=== PATIENT | female | born 1990 | race Caucasian/White ===

== ENCOUNTER → 2020-07-17 10:38 | Outpatient (CLI) | payer BC, SELFPAY ==
--- NOTE | ~2020-07-17 | US_ITS ---
EXAMINATION: US OB transvaginal EXAM DATE: 07/17/2020 11:01 INDICATION: Uncertain dates, spotting 1st trimester. TECHNIQUE: Pelvic obstetrical transvaginal sonogram was performed by a technologist. [facility] grays[facility] and Doppler images available for interpretation. There are no earlier studies of this gestation for comparison. FINDINGS: Uterus measures 8 x 5 x 6 cm. There is intrauterine gestation sac. pole with heart rate confirmed at 151 beats per minute. The 1.1 cm crown-rump length corresponds to estimated gestat ional age by ultrasound of 7 weeks 2 days, estimated date of confinement 03/03/2021. Yolk sac is anjel ntified. There is no sonographic evidence of subchorionic hemorrhage. Ovaries were not identified . IMPRESSION: Live intrauterine gestation, age by ultrasound 7 weeks 2 days. Reviewed, dictated and finalized at location B. 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
== END ==
PROVIDERS: Visit Provider Nurse Practitioner
DX: O26.851 Spotting complicating pregnancy, first trimester (principal); Z3A.01 Less than 8 weeks gestation of pregnancy
CPT/HCPCS: 76817

== ENCOUNTER → 2020-10-05 09:52 | Outpatient (CLI) | payer BC, SELFPAY ==
--- NOTE | ~2020-10-05 | US_ITS ---
EXAMINATION: US OB >= 14 weeks Fetus DATE: 10/05/2020 10:40 INDICATION: Second trimester anatomic survey TECHNIQUE: Real-time ultrasound of the pelvis was performed. COMPARISON: None. FINDINGS: There is a single living fetus in breech presentation. The placenta is anterior and 4.1 cm from the i nternal cervical os. heart rate is 153 beats per minute (bpm). cardiac activity and feta l movement are noted. The amniotic fluid index is subjectively normal. The heart is inadequately imaged due to positioning. The following anatomy was identified as normal: 3 vessel cord cord insertion kidneys urinary bladder stomach spine diaphragm ventricles cisterna magna cerebellum The following biometric data were obtained: Biparietal diameter (BPD): 4.3 cm; head circumference (HC): 16.3 cm; abdominal circumference (AC): 14 .1 cm; femur length (FL): 2.9 cm. These measurements are concordant. Estimated weight is 280 g +/- 42 g, which correlates with the 75th percentile when 03/03/2021 i s used as estimated date of delivery. As single measurements, these parameters are each equal to the following estimated gestational ages w ith ranges of +/- 2 standard deviations: BPD: 19 weeks 2 days ( 17 weeks 4 days - 21 weeks 0 days). HC: 19 weeks 1 days ( 17 weeks 4 days - 20 weeks 4 days). AC: 19 weeks 4 days ( 17 weeks 3 days - 21 weeks 4 days). FL: 18 weeks 6 days ( 17 weeks 1 days - 20 weeks 5 days). estimated gestational age based solely on measurements from this exam is 19 weeks 2 days +/- 1 weeks 2 days. IMPRESSION: 1. Single living fetus in breech presentation. 2. Estimated weight is 280 g +/- 42 g, which correlates with the 75th percentile when is used as estimated date of delivery. 3. heart and adequately imaged due to positioning. Reviewed, dictated and finalized at location A. IMPRESSION: 1. Single living fetus in breech presentation. 2. Estimated weight is 280 g +/- 42 g, which correlates with the 75th per centile when 03/03/2021 is used as estimated date of delivery. 3. heart and adequately imaged due to positioning.
== END ==
PROVIDERS: Visit Provider Obstetrics & Gynecology Gynecology
DX: Z34.92 Encounter for supervision of normal pregnancy, unspecified, second trimester (principal); Z3A.19 19 weeks gestation of pregnancy
CPT/HCPCS: 76805

== ENCOUNTER → 2020-11-02 10:41 | Outpatient (CLI) | payer BC, SELFPAY ==
--- NOTE | ~2020-11-02 | US_ITS ---
US OB limited 11/02/2020 11:09 Indication: Limited survey follow-up. Procedure: Real-time Limited obstetrical ultrasound Comparison: Ultrasound dated 10/05/2020 Findings: There is a single living intrauterine in breech presentation. heart rate is 139 BPM. Placenta is anterior measuring 3.9 cm to the cervix. Normal four-chamber heart is identifie d. Amniotic fluid is subjectively normal. Impression: 1: Single living intrauterine in breech presentation. 2: Normal four-chamber heart. Reviewed, dictated and finalized at location A. Impression: 1: Single living intrauterine in breech presentation. 2: Normal four-chamber heart.
== END ==
PROVIDERS: Visit Provider Obstetrics & Gynecology Gynecology
DX: Z36.2 Encounter for other antenatal screening follow-up (principal)
CPT/HCPCS: 76815

== ENCOUNTER → 2020-12-11 11:18 | Outpatient (CLI) | payer BC, SELFPAY ==
--- NOTE | ~2020-12-11 | US_ITS ---
EXAMINATION: US OB follow up EXAM DATE: 12/11/2020 11:47 INDICATION: Size greater than dates. Late 2nd trimester. TECHNIQUE: Pelvic obstetrical transabdominal sonogram was performed by a technologist. There are mu ltiple grayscale and Doppler images available for interpretation. Comparison is made to prior examina tion from 11/02/2020. FINDINGS: There is a single fetus identified in breech presentation with a heart rate of 159 beats pe r minute. The placenta is located in the anterior position. There is no sonographic evidence of retr oplacental hemorrhage identified. The amniotic fluid index is 18.7 centimeters, which is normal. BIOMETRIC DATA: Biparietal diameter (BPD): 7.1 cm ----------------> 28 weeks 5 days. Head circumference (HC): 26.9 cm ----------------> 29 weeks 2 days. Abdominal circumference (AC): 24.7 cm ----------> 29 weeks 0 days. Femur length (FL): 5.3 cm --------------------------> 28 weeks 2 days. These measurements are concordant. HC/AC ratio is 1.09 (The 5th -- 95th percentile range is 0.99-1.21. Estimated weight is 1276 g +/- 191 g. This is the 55th percentile when the currently reported clinical gestation age 28 weeks 2 days, clinical estimated date of delivery (GWENDOLYN-OPE) 03/03 is used. estimated gestational age based on measurements from this exam is 28 weeks 6 days, with an trisha mated date of delivery (GWENDOLYN-AUA) 02/27. IMPRESSION: 1. Single fetus in breech presentation with heart rate 159 beats per minute. 2. Estimated weight of 1276 grams, 55th percentile using the currently reported clinical gesta tion age of 28 weeks 2 days, GWENDOLYN(OPE) 03/03. 3. Normal GHAZAL 18.7 cm. Reviewed, dictated and finalized at location A. IMPRESSION: 1. Single fetus in breech presentation with heart rate 159 beats per minute. 2. Estimated weight of 1276 grams, 55th percentile using the currently r eported clinical gestation age of 28 weeks 2 days, GWENDOLYN(OPE) 03/03. 3. Normal GHAZAL 18.7 cm.
== END ==
PROVIDERS: Visit Provider Obstetrics & Gynecology Gynecology
DX: O36.63X0 Maternal care for excessive fetal growth, third trimester, not applicable or unspecified (principal); Z3A.00 Weeks of gestation of pregnancy not specified
CPT/HCPCS: 76816

== ENCOUNTER 2021-02-03 09:01 | Outpatient (CLI) | payer BC, SELFPAY ==
[2021-02-03 09:30] VITALS: BP 121/82; PULSE 93
[2021-02-03 09:45] VITALS: BP 117/77; PULSE 86
[2021-02-03 09:45] LABS: Basophils Percent Auto 0.3 % (0.2-1.2); Eosinophils Absolute Auto 0.1 K/mm3 (0-0.3); Eosinophils Percent Auto 1.4 % (0-4.4); Hematocrit 41.3 % (37.0-47.0); Hemoglobin 13.3 g/dL (12.0-15.0); Immature Granulocyte Absolute 0.03 K/mm3 (0.00-0.031); Immature Granulocyte Percent A 0.3 % (0-0.5); Lymphocytes Absolute Auto 2.14 K/mm3 (0.9-3.2); Lymphocytes Percent Auto 23.1 % (18.3-44.2); Mean Corpuscular HGB Conc 32.2 g/dl (32-36); Mean Corpuscular Hemoglobin 29.9 pg (26-34); Mean Corpuscular Volume 92.8 fl (80-100); Mean Platelet Volume 11.9 fl (7.4-10.4); Monocytes Absolute Auto 0.7 K/mm3 (0.1-0.6); Neutrophils Absolute Auto 6.3 K/mm3 (1.3-6.7); Neutrophils Percent Auto 67.9 % (45.5-73.1); Platelet Count Result 187 k/mm3 (150-375); Red Blood Count 4.45 M/mm3 (4.2-5.4); Red Cell Distribution Width 14.2 % (11.5-14.5); White Blood Count 9.3 K/mm3 (4.5-10.0)
[2021-02-03 09:59] LABS: Add Urine Microscopic? YES; Appearance Urine Cloudy (Clear); Bacteria Urine Trace /hpf; Bilirubin Urine Negative (Negative); Blood Urine 2+ (Negative); Color Urine Yellow (Yellow); Glucose Urine UA Negative (Negative); Ketones Urine Negative (Negative); Leukocyte Esterase Ur 3+ LEU/UL (NEGATIVE); Mucus Urine Rare /lpf; Nitrate Urine Negative (Negative); Protein Urine Negative (Negative); Specific Grav Ur 1.024 (1.001-1.035); Squamous Epithelial Cell Urine Few /hpf (Few); Urobilinogen Urine Negative mg/dL (<2.0)
[2021-02-03 10:00] VITALS: BP 116/76; PULSE 96
[2021-02-03 10:14] LABS: Alanine Aminotransferase 19 U/L (4-35); Albumin Level 3.5 g/dL (3.5-5.1); Alkaline Phosphatase 115 U/L (38-126); Anion Gap 8 mmol/L (8-16); Aspartate Amino Transferase 22 U/L (14-36); Bilirubin,Total 0.8 mg/dL (0.2-1.3); Blood Urea Nitrogen 15 mg/dL (7-17); Carbon Dioxide 21 mmol/L (22-30); Chloride 106 mmol/L (98-107); Estimated Glomerular Filt Rate > 60; Glucose 80 mg/dL (65-110); Potassium 4.1 mmol/L (3.4-5.0); Sodium 135 mmol/L (137-145); Uric Acid 5.5 mg/dL (2.5-7.5)
[2021-02-03 10:15] VITALS: BP 119/82; PULSE 87
[2021-02-03 10:30] VITALS: BP 116/76; PULSE 85
[2021-02-03 11:18] LABS: Creatinine Urine 107.2 mg/dL
[2021-02-03 11:31] LABS: Total Protein Urine Random < 5 mg/dL; Ur Ttl Prot Creatinine Ratio < 0.05 mg/mg (0-0.20)
== END 2021-02-03 11:05 | disposition home or self-care (01) ==
LOC: ANHOBOP 09:11 → ANHOBPP 09:12
PROVIDERS: PCP Internal Medicine; Visit Provider Obstetrics & Gynecology Gynecology
DX: O13.3 Gestational [pregnancy-induced] hypertension without significant proteinuria, third trimester (principal); Z3A.37 37 weeks gestation of pregnancy
CPT/HCPCS: 36415; 59025; 80053; 81001; 82570; 84156; 84550; 85025; 87086; 87088; 99199

== ENCOUNTER 2021-02-04 12:19 | Outpatient (CLI) | payer BC, SELFPAY ==
[2021-02-04 12:58] VITALS: BMI 39.3
[2021-02-04 14:29] LABS: Collection Time Urine 24 HOURS
[2021-02-04 14:30] LABS: Patient Weight 251 Lbs
[2021-02-04 14:31] LABS: Total Volume 24 Hour Urine 2495 ml
[2021-02-04 14:41] LABS: Creatinine Clearance Urine 168.6 ml/min (75-125); Creatinine Urine 74.9 mg/dL; Total Protein Urine 24 Hr 199 mg/24hr (28-141); Total Protein Urine Random 8 mg/dL
== END 2021-02-04 12:20 | disposition home or self-care (01) ==
LOC: ANHOBOP 12:43
PROVIDERS: PCP Internal Medicine; Visit Provider Obstetrics & Gynecology Gynecology
DX: O16.9 Unspecified maternal hypertension, unspecified trimester (principal); Z3A.00 Weeks of gestation of pregnancy not specified
CPT/HCPCS: 81050; 82575; 84156

== ENCOUNTER 2021-02-18 08:45 | Outpatient (RCR) | payer BC, SELFPAY ==
[2021-02-18 09:23] VITALS: BP 115/83; PULSE 88
== END 2021-04-05 09:34 | disposition home or self-care (01) ==
LOC: ANHOBOP 08:45
PROVIDERS: PCP Internal Medicine; Referring Provider Obstetrics & Gynecology Gynecology; Visit Provider Obstetrics & Gynecology Gynecology
DX: O24.419 Gestational diabetes mellitus in pregnancy, unspecified control (principal); Z3A.38 38 weeks gestation of pregnancy
CPT/HCPCS: 59025

== ENCOUNTER 2021-02-21 16:12 | Inpatient (IN) | payer BC, SELFPAY ==
[2021-02-21] VITALS (16 sets, daily range): BP systolic 93–125; BP diastolic 58–84; PULSE 79–109; TEMP 36.8–37.2; BMI 39.3
--- NOTE | 2021-02-21 16:12 | LDADM ---
This patient, Kymberly Woo, was admitted to Labor/Delivery/Recovery 109 on 02/21/21 at 16:12. Plans for labor, pain management and were discussed with patient. Patient/family oriented to hospital policies and general routines including ID bracelet, bed and alarms, visiting hours, pain management, procedures, bathroom and other care routines, personal items, smoking policy, room service/diet and guest tray routines, security routines, and visiting hours. Patient/Family are encouraged to report perceived risks to care and to ask questions if they do not understand what they are told or what they should do. See OBIX for further documentation.
[2021-02-21 16:44] LABS: Glucose Point of Care 87 mg/dl (65-105)
[2021-02-21 16:49] LABS: Basophils Absolute Auto 0.1 K/mm3 (0.0-0.1); Basophils Percent Auto 0.5 % (0.2-1.2); Eosinophils Absolute Auto 0.1 K/mm3 (0-0.3); Eosinophils Percent Auto 0.8 % (0-4.4); Hematocrit 40.5 % (37.0-47.0); Hemoglobin 13.9 g/dL (12.0-15.0); Immature Granulocyte Absolute 0.03 K/mm3 (0.00-0.031); Immature Granulocyte Percent A 0.3 % (0-0.5); Lymphocytes Absolute Auto 2.46 K/mm3 (0.9-3.2); Lymphocytes Percent Auto 24.3 % (18.3-44.2); Mean Corpuscular HGB Conc 34.3 g/dl (32-36); Mean Corpuscular Hemoglobin 31.2 pg (26-34); Mean Corpuscular Volume 90.8 fl (80-100); Mean Platelet Volume 11.7 fl (7.4-10.4); Monocytes Absolute Auto 0.8 K/mm3 (0.1-0.6); Monocytes Percent Auto 7.4 % (2.6-8.5); Neutrophils Absolute Auto 6.7 K/mm3 (1.3-6.7); Neutrophils Percent Auto 66.7 % (45.5-73.1); Platelet Count Result 211 k/mm3 (150-375); Red Blood Count 4.46 M/mm3 (4.2-5.4); Red Cell Distribution Width 14.2 % (11.5-14.5); White Blood Count 10.1 K/mm3 (4.5-10.0)
[2021-02-21 17:10] LABS: Alanine Aminotransferase 23 U/L (4-35); Albumin Level 3.9 g/dL (3.5-5.1); Alkaline Phosphatase 136 U/L (38-126); Anion Gap 9 mmol/L (8-16); Aspartate Amino Transferase 27 U/L (14-36); Blood Urea Nitrogen 16 mg/dL (7-17); Calcium 9.2 mg/dL (8.4-10.2); Carbon Dioxide 20 mmol/L (22-30); Chloride 107 mmol/L (98-107); Estimated CRCL calculation 131 ml/min; Estimated Glomerular Filt Rate > 60; Glucose 96 mg/dL (65-110); Potassium 4.3 mmol/L (3.4-5.0); Sodium 136 mmol/L (137-145)
[2021-02-21 17:15] LABS: Uric Acid 6.4 mg/dL (2.5-7.5)
[2021-02-21] MEDS: DINOPROSTONE 10 MG VAG INSERT VAGINAL (17:19)
[2021-02-21] MEDS: INSULIN HUMAN NPH (*BKC) 100 UNITS/ML 30 UNITS SUB-Q (21:05)
[2021-02-21] MEDS: metFORMIN HCL 500 MG TABLET PO (21:07)
[2021-02-21] MEDS: LABETALOL HCL 100 MG TABLET PO (21:10)
[2021-02-21 21:13] LABS: Glucose Point of Care 145 mg/dl (65-105)
[2021-02-22] VITALS (255 sets, daily range): BP systolic 71–141; BP diastolic 34–103; PULSE 55–136; TEMP 36.3–37.2; O2SAT 82–100
[2021-02-22 05:15] LABS: Glucose Point of Care 77 mg/dl (65-105)
[2021-02-22] MEDS: OXYTOCIN 30 UNITS/NS 500 ML 30 UNITS/500 ML BAG 6 UNITS IV CONT (05:40)
[2021-02-22] MEDS: LACTATED RINGERS 1,000 ML 125 ML IV CONT ×3 (05:40→20:35)
[2021-02-22 07:47] LABS: Glucose Point of Care 82 mg/dl (65-105)
[2021-02-22] MEDS: LABETALOL HCL 100 MG TABLET PO (09:04)
--- NOTE | 2021-02-22 09:09 | WPDOBADMIT ---
Obstetrics - Admit Note Admission Note: record reviewed. No pertinent additions to the history and/or any subsequent changes in the physical findings that are not consistent with the expected course of the were found. Additions to the history and/or subsequent changes in the physical findings follow. None.Here for MIL. Cervadil last pm and 2 hours later possible SROM. Now 3-4/70/-2 AROM with big gush fluid. FHTs reactive. Continue MIL with pitocin
--- NOTE | 2021-02-22 09:31 | WPDANESEPP ---
Anes - Eval Pre Procedure Procedure: labor pain management Date/Time: 02/22/21 09:31 Surgeon: Mitra Preop Diagnosis: Pain during labor Pre Op Diagnosis: Induction of Labor Patient Data Age: 30 Gender: F Height: 1.7 m Weight: 114 kg Last Vital Signs Temp 98.3 F 02/22/21 08:00 Pulse 72 02/22/21 09:04 BP 121/81 02/22/21 09:04 Allergies Allergy/AdvReac Type Severity Reaction Status Date / Time No Known Allergies Allergy Verified 02/21/21 16:34 Home Medications Medication Instructions Recorded Confirmed Type PNV cmb#95-ferrous fumarate-FA 1 tablet PO DAILY 01/29/21 02/21/21 History [] aspirin 81 mg PO DAILY 01/29/21 02/21/21 History cholecalciferol (vitamin D3) 50 mcg PO DAILY 01/29/21 02/21/21 History [Vitamin D3] ergocalciferol (vitamin D2) 1,250 mcg PO WEEKLY 01/29/21 02/21/21 History [Vitamin D2] insulin NPH isoph U-100 human 26 unit SUBCUT DAILY 01/29/21 02/21/21 History [Novolin N NPH U-100 Insulin] labetalol 100 mg PO Q12H 01/29/21 02/21/21 History metformin 500 mg PO DAILY 01/29/21 02/21/21 History nutritional supplement-fiber 1 ea PO DAILY 01/29/21 02/22/21 History [Juice Plus] Laboratory Tests 02/21/21 02/21/21 02/21/21 16:41 16:41 16:41 WBC 10.1 K/mm3 H K/mm3 (4.5-10.0) RBC 4.46 M/mm3 M/mm3 (4.2-5.4) Hgb 13.9 g/dL g/dL (12.0-15.0) Hct 40.5 % % (37.0-47.0) MCV 90.8 fl fl (80-100) MCH 31.2 pg pg (26-34) MCHC 34.3 g/dl g/dl (32-36) RDW 14.2 % % (11.5-14.5) Plt Count 211 k/mm3 k/mm3 (150-375) MPV 11.7 fl H fl (7.4-10.4) Immature Gran % (Auto) 0.3 % % (0-0.5) Neut % (Auto) 66.7 % % (45.5-73.1) Lymph % (Auto) 24.3 % % (18.3-44.2) Bath % (Auto) 7.4 % % (2.6-8.5) Eos % (Auto) 0.8 % % (0-4.4) Baso % (Auto) 0.5 % % (0.2-1.2) Lymph # (Auto) 2.46 K/mm3 K/mm3 (0.9-3.2) Bath # (Auto) 0.8 K/mm3 H K/mm3 (0.1-0.6) Eos # (Auto) 0.1 K/mm3 K/mm3 (0-0.3) Baso # (Auto) 0.1 K/mm3 K/mm3 (0.0-0.1) Abs Immat Gran (auto) 0.03 K/mm3 K/mm3 (0.00-0.031) Absolute Neuts (auto) 6.7 K/mm3 K/mm3 (1.3-6.7) Absolute Nucleated RBC 0.0 K/mm3 K/mm3 (0.0-0.012) Nucleated RBC % 0.0 % % (0.0-0.2) Sodium Potassium Chloride Carbon Dioxide Anion Gap BUN Creatinine Estim Creat Clear Calc Estimated GFR Glucose POC Capillary Glucose Uric Acid Cancelled Calcium Total Bilirubin AST ALT Alkaline Phosphatase Total Protein Albumin RPR Pending Blood Type Antibody Screen 02/21/21 02/21/21 02/21/21 16:41 16:41 16:41 WBC RBC Hgb Hct MCV MCH MCHC RDW Plt Count MPV Immature Gran % (Auto) Neut % (Auto) Lymph % (Auto) Bath % (Auto) Eos % (Auto) Baso % (Auto) Lymph # (Auto) Bath # (Auto) Eos # (Auto) Baso # (Auto) Abs Immat Gran (auto) Absolute Neuts (auto) Absolute Nucleated RBC Nucleated RBC % Sodium 136 mmol/L L mmol/L (137-145) Potassium 4.3 mmol/L mmol/L (3.4-5.0) Chloride 107 mmol/L mmol/L (98-107) Carbon Dioxide 20 mmol/L L mmol/L (22-30) Anion Gap 9 mmol/L mmol/L (8-16) BUN 16 mg/dL mg/dL (7-17) Creatinine 0.70 mg/dL mg/dL (0.7-1.0) Estim Creat Clear Calc 131 ml/min ml/min
[2021-02-22] MEDS: ONDANSETRON INJ 4 MG/2 ML VIAL IV PUSH (09:32)
[2021-02-22 10:40] LABS: Rapid Plasma Reagin Non-Reactive (NonReactive)
[2021-02-22 12:50] LABS: Glucose Point of Care 70 mg/dl (65-105)
[2021-02-22] MEDS: AMPICILLIN 2 GM/NS 100 ML 2 GM/100 ML BAG IVPB (13:18)
[2021-02-22 16:39] LABS: Glucose Point of Care 60 mg/dl (65-105)
[2021-02-22] MEDS: AMPICILLIN 1 GM/NS 50 ML 1 GM/50 ML BAG IVPB ×2 (17:28→22:13)
--- NOTE | 2021-02-22 23:34 | PM.OBPRVD ---
OB - Delivery Note Procedure Delivery date: 02/22/21 Procedure: events: Labor Induction Intrapartal events: None Induction method: AROM, per pitocin protocol and per cervidil protocol Delivery monitor: external FHT and internal uterine Route of delivery: Laceration Description: Perineal - 2nd Degree Delivery repair: vicryl (3-0 ) Specimen: No Quantitative Blood Loss (ml): 125 Anesthesia type: Epidural Disposition: floor Gravel Switch Baby Date of : 02/22/21 Weeks of gestation at delivery: 39 gender: Male presentation: vertex position: Right Occiput Anterior Placenta delivery description: Spontaneous cord vessel description: 3 Vessels score one minute: 8 score five minutes: 9
--- NOTE | 2021-02-22 23:35 | PM.OBDSVD ---
DS: Admitting Diagnosis Discharge Date 02/24/21 Admitting Diagnosis MIL CHTN [id number] DS: Discharge Diagnosis Discharge Diagnosis (1) (normal spontaneous vaginal delivery): Code(s): O80 - Encounter for full-term uncomplicated delivery Status: Acute OB - DS: Summary OB Procedures : Ultrasound OB Procedures Intrapartum: Spontaneous Vag Delivery OB Procedures: : None Peripartum Data Infant Delivery Method: Natural Vaginal Laceration Description: Perineal - 2nd Degree complications: none Status at Discharge Functional status at discharge: independent ambulation Overall status at discharge: patient is progressing back to baseline Time Spent with Patient Time attestation: Total time spent providing and/or coordinating discharge services: DS: Data Data Completed and Pending Labs on day of discharge: Labs from last 24 hours 02/22/21 02/22/21 02/22/21 16:23 12:47 07:43 POC Capillary Glucose 60 L 70 82 RPR 02/22/21 02/21/21 05:12 16:41 POC Capillary Glucose 77 RPR Non-reactive Discharge Plan Discharge Attending physician on discharge: Brook Manriquez Discharging Clinician: Jeromy Britton Anticipated Discharge Date/Time: 02/24/21 23:36 Patient Disposition: Home, Self-Care Activity: may shower and pelvic rest Diet: regular Discharge Instructions: Education: Mom and Baby Guide Given to: Mother Follow-Up: Call your delivering provider's office for an appointment to be seen in: 6 Weeks Mom and baby should come to the [facility] for the follow-up appointment. Appointment Date/Time: February 25, 2021 at 9:00 am What to expect at your follow-up visit: Blood Pressure Check Call [phone] if you are unable to keep your appointment time. BREAST CARE: * Wear a snug supportive bra. * For engorgement discomfort: Breast Feeding: * Apply warm moist washcloths * Express milk as needed to relieve engorgement * Wear loose clothing Bottle Feeding: * May apply ice packs * For sore nipples: * Identify correct latch-on * Apply warm moist washcloths before and after nursing * Air dry nipples after nursing * May apply Lansinoh cream to nipples PERINEAL CARE: * Until bleeding stops, use your luisa bottle after urinating * Change your pad frequently throughout the day * You may take sitz baths several times a day (fill your bathtub with warm water and soak for 20 minutes.) Do NOT bathe in the water * No tub baths until seen by your physician - You may shower ACTIVITY: * Rest as much as possible. * Do not exercise or lift anything heavier than your baby (such as laundry or other children.) * Avoid stairs or driving as much as possible. * Do not put anything into the vagina. No douching, tampons, or sexual activity until seen by physician. NOTIFY PHYSICIAN IF YOU HAVE ANY QUESTIONS OR IF ANY OF THE FOLLOWING SYMPTOMS OCCUR: * If your perineum becomes red, swollen, or more painful than what you have experienced in the hospital. * If your vaginal bleeding becomes foul smelling. * If your vaginal bleeding becomes more heavy than a period or if your bleeding changes from pink to bright red. However, you may pass an occasional walnut-sized clot once or twice for the first week . * If you experience a sharp, shooting pain in you calves. * If you discover a hard, reddened area on your breast or if you experience flu-like symptoms. * If you have a fever of 100.4 or greater DIET: * Eat regular, well-balanced meals. * Drink plenty of fluids daily. If , drink to thirst. Patient Instructions: Antibiotic Form Stand Alone Forms: General Discharge Information Follow-up/Referrals: Brook Manriquez MD [Physician] - 6 Weeks Discharge Medications: New norethindrone (contraceptive) 0.35 mg table
[2021-02-22] MEDS: OXYTOCIN 30 UNITS/NS 500 ML 30 UNITS/500 ML BAG 125 UNITS IV CONT (23:39)
[2021-02-23] VITALS (28 sets, daily range): BP systolic 95–119; BP diastolic 56–77; PULSE 72–146; RESP 18; TEMP 36.3–37; O2SAT 94–100
[2021-02-23] MEDS: WITCH HAZEL 40 PADS 1 PAD TOPICAL (01:14)
[2021-02-23] MEDS: BENZOCAINE 20% AER SPR (*SP) 56 GM CAN 1 SPRAY TOPICAL (01:14)
[2021-02-23 01:19] LABS: Glucose Point of Care 78 mg/dl (65-105)
[2021-02-23 01:19] LABS: Glucose Point of Care 65 mg/dl (65-105)
[2021-02-23] MEDS: IBUPROFEN 600 MG TABLET PO ×3 (04:06→16:34)
[2021-02-23] MEDS: ACETAMINOPHEN 325 MG TABLET 650 MG PO (04:06)
[2021-02-23 05:35] LABS: Glucose Point of Care 94 mg/dl (65-105)
[2021-02-23 05:40] LABS: Hematocrit 37.6 % (37.0-47.0); Hemoglobin 12.8 g/dL (12.0-15.0)
--- NOTE | 2021-02-23 07:47 | PM.OBPNVD ---
OB - PN: Subj Subjective Date/time seen: 02/23/21 07:47 Patient comments: no complaints and pain well controlled baby status: doing well OB - PN: Obj Data Labs CBC & Chem 7: 02/23/21 05:31 02/21/21 16:41 Labs: Laboratory Results - last 24 hr 02/21/21 02/22/21 02/22/21 16:41 07:43 12:47 Hgb Hct POC Capillary Glucose 82 70 RPR Non-reactive 02/22/21 02/22/21 02/22/21 16:23 17:31 18:29 Hgb Hct POC Capillary Glucose 60 L 65 78 RPR 02/23/21 02/23/21 05:30 05:31 Hgb 12.8 Hct 37.6 POC Capillary Glucose 94 RPR OB - PN A/P Plan day: 1 Plan: routine care Time Spent With Patient Time: Total time spent is greater than 50% in coordination of care (as documented) at patient's floor/unit and/or counseling patient: Exam : Bimanual exam- vagina & uterus: other (Uterus firm, nt @U)
--- NOTE | 2021-02-23 08:05 | PC.NURSE ---
02/23/2021 at 0157 Patient transferred to post room #290. Support person present. Oriented to unit, room, information board, rooming in, admission packet and security measures. Patient verbalizes understanding.
[2021-02-23] MEDS: DOCUSATE SODIUM 100 MG CAPSULE PO (10:07)
[2021-02-23] MEDS: MULTIVIT/MIN/PREN/FOL AC/IRON TABLET 1 TAB PO (10:08)
--- NOTE | 2021-02-23 10:35 | PC.NURSE ---
Consulted with patient, reviewed feeding cues, frequencies, duration of feedings, feeding elimination flow sheet, and signs of adequate intake. Patient's primary RN had helped get to breast prior to my assessment. Parents stimulating infant to continue to stay awake at breast upon my entry to room. Reviewed positioning/alignment, holding breast and asymmetrical latch on. Infant was able to latch correctly with burst of sucking, occasional swallowing noted. Reviewed signs of a correct latch, effective nursing and suck swallow ratio. Infant was able to maintain latch without discomfort to mother. Nipple care reviewed. Instructed mother to call out for RN assistance if she is unable to latch infant for feeding or she has discomfort with nursing. Instructed feeding should be initiated three hours from start of last feeding or if feeding cues are noted before. Mother voiced understanding of information shared.
--- NOTE | 2021-02-23 10:38 | WPDANLDPN2 ---
Anes-Prog Note L&D Date/Time: 02/23/21 10:38 Comfortable throughout: labor and delivery Neuraxial method: epidural Epidural/Spinal procedure site: clean & non-tender Neuro status: Neuro function grossly intact. Cardiovascular status: normal Respiratory status: normal Airway patency: baseline Mental status: baseline Post-Op hydration status: normal Vital Signs: Last Vital Signs Temp 36.8 C 02/23/21 07:45 Pulse 72 02/23/21 07:45 Resp 18 02/23/21 07:45 BP 115/77 02/23/21 07:45 Pulse Ox 99 02/23/21 07:45 Pain score (VAS): 3 I/O: Intake & Output 02/22/21 02/23/21 02/23/21 23:59 07:59 15:59 Intake Total 1050 Output Total 263 Balance 1050 -263 Post-procedural complaints: none Patient feedback: Patient satisfied with anesthetic care.
[2021-02-23] MEDS: LABETALOL HCL 100 MG TABLET PO (13:30)
--- NOTE | 2021-02-23 14:23 | PC.NURSE ---
Attempted to get infant to breast at 1300, infant would latch with no suck following latch. sleepy. After multiple attempts decided to try again once patient ate lunch. Started attempting again around 1340 with only a one or two bursts of 3-4 sucks. Stimulation done to keep infant awake at breast. Tried latching in cross cradle and football positions. Attempted both with and without nipple shield until around 1400. After multiple attempts decision made to try pumping and feeding colostrum. Mom pumped and 1 ml of colostrum to baby via a syringe followed by formula supplement.
[2021-02-23] MEDS: metFORMIN HCL 500 MG TABLET PO (16:34)
--- NOTE | 2021-02-23 21:00 | PC.NURSE ---
Patient viewed the discharge video Mother & Baby Care, The First Two Weeks . Patient was given the opportunity and encouraged to ask questions. Patient verbalized understanding of information shared and has been given the mother/baby guide for home reference.
[2021-02-24 00:06] VITALS: PULSE 85
[2021-02-24] MEDS: LABETALOL HCL 100 MG TABLET PO ×2 (00:06→11:27)
[2021-02-24 00:10] VITALS: BP 120/76; PULSE 85; RESP 18; TEMP 36.4; O2SAT 99
[2021-02-24 04:20] VITALS: BP 119/73; PULSE 76; RESP 18; TEMP 36.4; O2SAT 99
--- NOTE | 2021-02-24 07:30 | PC.NURSE ---
PT introductions made and plan of care discussed per post , pain management, breast feeding, daily care activities and pending discharge to home. PT and spouse both recipients of such instructions per shift and no barriers to learning identified. PT received such instructions per one to one discussion, mom baby care guide and demonstrations. PT verbalized understanding of such care.
--- NOTE | 2021-02-24 07:53 | PM.OBPNVD ---
OB - PN: Subj Subjective Date/time seen: 02/24/21 07:53 doing well no complaints OB - PN: Obj Data Labs CBC & Chem 7: 02/23/21 05:31 02/21/21 16:41 OB - PN A/P Assessment and Plan (1) (normal spontaneous vaginal delivery): Code(s): O80 - Encounter for full-term uncomplicated delivery Status: Acute Assessment and Plan: d/c home Time Spent With Patient Time: Total time spent is greater than 50% in coordination of care (as documented) at patient's floor/unit and/or counseling patient: Exam Narrative: ff below umbilicus
[2021-02-24 09:30] VITALS: BP 120/70; PULSE 76; RESP 18; TEMP 36.4; O2SAT 100
[2021-02-24] MEDS: WITCH HAZEL 40 PADS 1 PAD TOPICAL (11:26)
[2021-02-24] MEDS: BENZOCAINE 20% AER SPR (*SP) 56 GM CAN 1 SPRAY TOPICAL (11:26)
[2021-02-24 11:27] VITALS: PULSE 80
[2021-02-24] MEDS: MULTIVIT/MIN/PREN/FOL AC/IRON TABLET 1 TAB PO (11:28)
[2021-02-24] MEDS: DOCUSATE SODIUM 100 MG CAPSULE PO (11:28)
[2021-02-24] MEDS: IBUPROFEN 600 MG TABLET PO (11:28)
--- NOTE | 2021-02-24 15:18 | PC.NURSE ---
1430 Breast feeding note; nurse visited with mother at baby's 1100 feeding today. She reports baby really was awake a lot through the night and was breast feeding. This feeding, baby awake and able to latch demonstrating fairly vigorous sucking for 15 minutes; mother did give supplement of 15cc. Reviewed with parents again, how to assess that baby was latched correctly, deep maintained latch and vigorous sucking; also instructed if they feel that a feeding was not as vigorous, or effective as it should be, to supplement amount wants, and mother should pump. IF baby will not wake to feed mother should bottle feed infant, and pump. At this time, baby has not nursed since 1100; mother has tried on her own, and nurse assisted at this time; baby sleepy; gently awakened and attempt to latch, but he would not latch to feed. Per above plan, FOB bottle fed infant and mother pumped. They will continue with this plan at home. Pt has LC contact information and she was encouraged to call LC if mother does not feel breast changes and milk coming in by this Monday to Monday. She agreed and voiced understanding.
--- NOTE | 2021-02-24 15:30 | PC.NURSE ---
PT received discharge instructions per protocol and verbalized understanding of such care. Patient viewed the discharge video Mother & Baby Care, The First Two Weeks . Patient was given the opportunity and encouraged to ask questions. Patient verbalized understanding of information shared and has been given the mother/baby guide for home reference.
--- NOTE | 2021-02-24 15:50 | PC.NURSE ---
PT discharged to home ambulatory accompanied by spouse and to waiting car. Follow up appts confirmed
[2021-02-25 09:05] VITALS: BP 120/76; PULSE 82; RESP 20; TEMP 37.1; O2SAT 99
== END 2021-02-24 15:50 | disposition home or self-care (01) | DRG 806 ==
LOC: ANHLDR 02-22 23:38 → ANHOB2 02-24 13:17 → ANHLDR 02-25 10:33 → ANHOB2 02-25 10:33
PROVIDERS: Admitting Provider Obstetrics & Gynecology Gynecology; PCP Internal Medicine; Visit Provider Obstetrics & Gynecology
DX: O24.429 Gestational diabetes mellitus in childbirth, unspecified control (principal); O10.92 Unspecified pre-existing hypertension complicating childbirth; Z37.0 Single live birth; Z3A.39 39 weeks gestation of pregnancy; O70.1 Second degree perineal laceration during delivery; O99.284 Endocrine, nutritional and metabolic diseases complicating childbirth; E28.2 Polycystic ovarian syndrome
CPT/HCPCS: 36415; 80053; 82948; 84550; 85014; 85018; 85025; 86592; 86850; 86900; 86901; A9270; J0290; J1815; J2405; J2590; J2795; J7120

== ENCOUNTER 2021-03-02 10:00 | Outpatient (RCR) | payer BC, SELFPAY ==
--- NOTE | 2021-02-26 12:23 | PC.NURSE ---
IN 1005 OUT 1100 HISTORY: Pt. delivered at [facility] at 39 weeks. had no complications after delivery. Mother had no complications after delivery. Infant is now 6 days old. appears to be well cared for. has been seen by ICP as scheduled. Infant last seen by ICP at 1 week. Mother reports: Currently at 6-8 wets per day and 2-3 brown/green pasty stools per day. weight: 6#13 Discharge weight: 6#10 Last Weight:6#8 at follow up. Mother states was sleepy and not eagerly latching from first feeding. Mother began with attempting infant to breast each feeding, supplementing and pumping. Mother was given a nipple shield while in the hospital, reporting she used it a few times. Mother is not attempting now using shield. Once home mother would put to breast, bottle feed EBM/formula of 40 mls every three hours and would then pump. Parents are limiting amount of formula given. is freq fussy acting as if he would take more. will latch at times for a few short bursts, mother reports infant gives her less effort at breast and will quickly release latch and then refuse to return to breast. is increasing amount by bottle. Mother is pumping 15-20 minutes getting 20 mls with a [employer] double electric pump. Mother has no pain or difficulties with pumping. Mother wishes: to return to breast with less pumping and bottle feedings. OBSERVATION: Tongue is able to move freely past gum ridge, both lips flange easily. Mother has everted nipples with skin intact no redness, blisters, scabbing or abrasions noted. Mother has issues with positioning/alignment. Assisted with pillows and a roll for her wrist to keep infant's head in alignment with nipple. Reviewed infant feeding cues, frequencies, duration of feedings, feeding elimination flow sheet, and signs of adequate intake. Demonstrated stimulation techniques to wake infant for feeding. Assisted with infant to breast. Reviewed positioning/alignment in cross cradle, holding breast in ?U? hold and guided asymmetrical latch on. Reviewed rational for each. Infant made weak attempts and is unable to draw nipple in to maintain latch. Attempted with formula first and then to transition to breast with no success Suggested use of nipple shield, With shield in place was able to latch correctly within a few attempts. Small amounts of formula to shield to entice to suckle. began to suckle slowly and once mother had a let down nursed eagerly with steady draws and frequent swallowing noted, some pausing noted. Reviewed signs of a correct latch, effective nursing and suck swallow ratio. Suggested mother stimulate while feeding to increase stimulate, increase intake and to assist with maintaining deep latch. Infant would respond to stimulation with increased nursing. would slip to shallow latch causing tenderness. Demonstrated how to adjust latch more deeply while feeding if needed. Mother reports she can feel the difference in latch with no tenderness. Nipple care reviewed of lanolin after feedings, warm compresses as needed. Mother reports this was the most eager this feeding infant has had since discharge. Mother feels she has not had in correct position to latch and has not been holding breast for latch or during entire feeding. Reviewed if mother is pumping 20 mls and is taking 40mls, advised parents can increase amount of supplement given. may want to feed every four hours with increased intake. Mother will increase pumping to 20-25 minutes if pumping every 4 hours. After infant at breast 15 minutes, FOB gave 55 mls formula to satisfy infant. Pre feeding weight: not done Post feeding weight: PLAN: Mother will follow above feeding plan of putting to breast using nipple shield each feeding and offerin
--- NOTE | 2021-03-02 13:31 | PC.NURSE ---
IN 1000 OUT 1050 HISTORY: Return visit for issues with latch and nipple shield use. Mother reports: Currently at 10 wets per day and 3 yellow seedy stools per day. Infant continues to have issues with latching and maintaining latch on left breast. He will eagerly latch and nurse on right. Mother reports he is on and off during feeding and sleepy. She will remove from breast to wake and then begin feeding again 2-3 times during each feeding taking up to 45 minutes. Infant is consistent with 30-40 mls EBM/formula after each feeding. Mother continues to pump for 15 after each session, mother feels milk supply has increased slight and is now pumping 30 mls after. Mother has attempted a few times without shield, is unable to latch. OBSERVATION: Pre feeding weight: 3029 Post feeding weight: 3074 Mother puts infant to breast with a slightly shallow latch, nipple shield can be seen moving in and out. Reviewed positioning/alignment in cross cradle, holding breast in U hold and guided asymmetrical latch on. was able to latch correctly. Advised to hold infant closely with chin into breast tissue for deeper latch. Infant nursed eagerly, with steady draws and occasional swallowing noted. He quickly began to pull back and release. Advised mother to massage and self express to initiate milk let down, then return infant to breast. Infant eagerly latched and nursed with steady draws and frequent swallowing noted. Reviewed signs of a correct latch, effective nursing and suck swallow ratio. Infant was able to maintain latch without discomfort to mother. Demonstrated breast compression to keep milk flowing. Mother reports infant has remained at breast longer this feeding than previous. When switched to left, mother has issues with positioning/alignment. Assisted her with pillows and a wrist roll to keep infant in correct alignment and in front of nipple. This worked well for her and infant responded with a consistent 15 minutes of nursing. Mother feels she was not latching deeply and needed a better position to keep at breast. Infant was satisfied after this feeding of 20 minutes on right and 15 on left breast. Mother reports both breasts feel empty. Discussed mother is pumping close to what is taking. Plan is for infant to be more consistent at breast and increase intake. Reviewed that if she feels infant has emptied breasts and appears satisfied she can decrease/discontinue supplement as long as he maintains output and is gaining weight. PLAN: Mother will follow above feeding plan.. Mother will call with further questions or concerns. Follow up phone call scheduled for Monday-. I
== END 2021-05-27 23:59 | disposition home or self-care (01) ==
LOC: ANHOBOP 10:00
PROVIDERS: PCP Internal Medicine; Visit Provider Pediatrics
DX: Z39.1 Encounter for care and examination of lactating mother (principal)
CPT/HCPCS: 99212; G0463

== ENCOUNTER 2021-08-06 13:02 | Outpatient (CLI) | payer BC, SELFPAY ==
--- NOTE | ~2021-08-06 | MR_ITS ---
EXAMINATION: MR brain/brain stem wo/w con DATE: 08/06/2021 14:20 INDICATION: Pulsatile tinnitus. TECHNIQUE: Magnetic resonance imaging (MRI) of the brain, brainstem, and internal auditory canals was performed without and with 20 mL MultiHance intravenous contrast. Sequences included sagittal and ax ial T1-weighted FSE, axial diffusion-weighted FS EPI, axial T2*-weighted GRE, axial T2-weighted FLAIR Propeller, axial T2-weighted Propeller, small prkyz-dd-utub coronal FIESTA, small gesez-ta-upcj geetha nal T1-weighted FSE, and small iizoc-wy-mepu axial T1-weighted SPGR. Postcontrast sequences included axial T1-weighted FSE, small xvlux-bl-mzka coronal T1-weighted FSE, and small ukpal-be-sfhe axial T1- weighted SPGR. Apparent diffusion coefficient (ADC) maps were created. COMPARISON: None. FINDINGS: There is no intracranial hemorrhage, acute infarction, or abnormal intracranial mass lesion . The ventricles are normal in size. The orbits are normal. The paranasal sinuses are clear. The mast oid air cells are normal. The internal auditory canals and inner and middle ears are normal. IMPRESSION: 1. Normal brain. Reviewed, dictated and finalized at location A. IMPRESSION: 1. Normal brain.
[2021-08-06 13:49] LABS: Estimated Glomerular Filt Rate > 60
== END 2021-08-06 13:03 | disposition home or self-care (01) ==
PROVIDERS: PCP Internal Medicine; Visit Provider Internal Medicine
DX: H93.A2 Pulsatile tinnitus, left ear (principal)
CPT/HCPCS: 70553; A9577

== ENCOUNTER 2022-07-29 12:53 | Outpatient (CLI) | payer BC, SELFPAY ==
--- NOTE | ~2022-07-29 | MMUS_ITS ---
EXAMINATION: MM diagnostic viv BI w debbi, US breast LT limited HISTORY: Left breast pain near the nipple, family history of breast cancer in her mother, BRCA2 posit burke. TECHNIQUE: Craniocaudal, mediolateral, and mediolateral oblique 3-D tomosynthesis images of the breas ts were performed and synthetic 2-D images were generated. CAD analysis was submitted and interpreted . High resolution limited left breast ultrasound was performed. COMPARISON: None, baseline BREAST PARENCHYMAL COMPOSITION: There are scattered areas of fibroglandular density. FINDINGS: MAMMOGRAPHIC FINDINGS: No suspicious mass, calcification, or architectural distortion are identified in either breast to sug gest malignancy. No mammographic correlate is identified for the patient's reported left breast pain. ULTRASOUND: There is no evidence of focal abnormal solid or cystic mass in the vicinity of the patient's reported left breast pain. IMPRESSION: 1. No specific mammographic or sonographic correlate is identified for the reported palpable abnormal ity of concern. Further evaluation at this time should be based on clinical assessment. Continued fol low-up physical examination is recommended. 2. Recommend routine screening mammography in one year given family history of breast cancer in her m other. In addition, genetic counseling is recommended as supplemental screening may be indicated. BI-RADS Category 1: Negative Reviewed, dictated and finalized at location A. 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 No specific mammographic or sonographic correlate is identified for the repo rted palpable abnormality of concern. Further evaluation at this time should be based on clinical assessment. Continued follow-up physical examination is katy mmended. 2. Recommend routine screening mammography in one year given family history of breast cancer in her mother. In addition, genetic counseling is recommended as supplemental screening may be indicated. BI-RADS Category 1: Negative
== END 2022-07-29 12:54 | disposition home or self-care (01) ==
PROVIDERS: PCP Internal Medicine; Visit Provider Obstetrics & Gynecology Gynecology
DX: N64.4 Mastodynia (principal)
CPT/HCPCS: 76642; 77061; 77062; 77065; 77066; G0279

== ENCOUNTER → 2022-09-21 14:26 | Outpatient (CLI) | payer BC, SELFPAY ==
--- NOTE | ~2022-09-21 | US_ITS ---
EXAMINATION: US OB <= 14 weeks fetus DATE: 09/21/2022 14:49 INDICATION: Uncertain dates. TECHNIQUE: Real-time transabdominal pelvic ultrasound was performed. COMPARISON: None. FINDINGS: The uterus measures 9.8 x 6.0 x 7.4 cm. There is an intrauterine gestational sac. A yolk sac is ident ified. The crown rump length measures 2.5 cm, which correlates with an estimated gestational a ge of 9 weeks and 2 day(s) (+/-) 6 day(s). heart motion is identified measuring 176 beats per m inute (bpm) by M-mode Doppler. The right ovary measures 2.8 x 1.6 x 1.8 cm. The left ovary measures 3 .4 x 2.2 x 3.3 cm. There is no free fluid in the pelvis. IMPRESSION: 1. Single living intrauterine gestation with estimated date of delivery of 04/24/2023. Reviewed, dictated and finalized at location A.
== END ==
PROVIDERS: PCP Obstetrics & Gynecology Gynecology; Visit Provider Obstetrics & Gynecology Gynecology
DX: Z36.87 Encounter for antenatal screening for uncertain dates (principal); Z3A.00 Weeks of gestation of pregnancy not specified
CPT/HCPCS: 76801

== ENCOUNTER 2023-03-29 10:15 | Outpatient (RCR) | payer BC, SELFPAY ==
[2023-03-27 10:20] VITALS: BP 132/85; PULSE 88
--- NOTE | ~2023-03-29 | US_ITS ---
EXAMINATION: US OB limited w BPP DATE: 03/29/2023 11:19 INDICATION: Biophysical profile, GHAZAL assessment, nonreassuring NST during 3rd trimester TECHNIQUE: Real-time pelvic ultrasound was performed. The interpreting radiologist was not present fo r the study. COMPARISON: None. FINDINGS: There is a single living fetus in vertex presentation. The placenta is anterior. heart rate is 149 beats per minute (bpm). The amniotic fluid assessment is 7.9 cm which is normal (normal range: 7. 7 cm to 24.9 cm). Biophysical profile performed by the technologist: breathing (30 sec sustained breathing in 30 minutes): 2 out of 2 movement (3 gross body movements in 30 minutes): 2 out of 2 tone (one episode of vmpnfxl-ybkcqcpcw-wslimfj limb movement): 2 out of 2 Amniotic fluid pocket (2 cm): 2 out of 2 Total score: 8 out of 8 IMPRESSION: 1. Single living fetus in vertex presentation. 2. Biophysical profile 8 out of 8. 3. Normal amniotic fluid index. Reviewed, dictated and finalized at location B. [facility] DEVELOPMENTAL
[2023-03-29 11:50] VITALS: BP 115/77; PULSE 78
== END 2023-06-25 23:59 | disposition home or self-care (01) ==
LOC: ANHOBOP 10:15
PROVIDERS: PCP Obstetrics & Gynecology Gynecology; Visit Provider Obstetrics & Gynecology Gynecology
DX: O26.893 Other specified pregnancy related conditions, third trimester (principal); Z3A.35 35 weeks gestation of pregnancy; Z3A.36 36 weeks gestation of pregnancy
CPT/HCPCS: 59025; 76815; 76819

== ENCOUNTER 2023-04-19 05:06 | Inpatient (IN) | payer BC, SELFPAY ==
[2023-04-19] VITALS (122 sets, daily range): BP systolic 105–146; BP diastolic 58–99; PULSE 51–184; RESP 18; TEMP 36.9–37.2; O2SAT 95–100; BMI 38.3
[2023-04-19] MEDS: OXYTOCIN 30 UNITS/NS 500 ML 30 UNITS/500 ML BAG IV CONT (06:02)
[2023-04-19] MEDS: LACTATED RINGERS 1,000 ML 125 ML IV CONT ×2 (06:03→09:21)
--- NOTE | 2023-04-19 06:17 | WPDOBADMIT ---
Obstetrics - Admit Note Admission Note: record reviewed. No pertinent additions to the history and/or any subsequent changes in the physical findings that are not consistent with the expected course of the were found. Additions to the history and/or subsequent changes in the physical findings follow. None.
[2023-04-19 06:19] LABS: Basophils Absolute Auto 0.1 K/mm3 (0.0-0.1); Basophils Percent Auto 0.8 % (0.2-1.2); Eosinophils Absolute Auto 0.2 K/mm3 (0-0.3); Eosinophils Percent Auto 1.6 % (0-4.4); Hematocrit 41.2 % (37.0-47.0); Hemoglobin 13.5 g/dL (12.0-15.0); Immature Granulocyte Absolute 0.03 K/mm3 (0.00-0.031); Immature Granulocyte Percent A 0.3 % (0-0.5); Lymphocytes Absolute Auto 3.04 K/mm3 (0.9-3.2); Lymphocytes Percent Auto 31.4 % (18.3-44.2); Mean Corpuscular HGB Conc 32.8 g/dl (32-36); Mean Corpuscular Hemoglobin 30.5 pg (26-34); Mean Corpuscular Volume 93.2 fl (80-100); Mean Platelet Volume 13.3 fl (7.4-10.4); Monocytes Absolute Auto 0.7 K/mm3 (0.1-0.6); Monocytes Percent Auto 7.1 % (2.6-8.5); Neutrophils Absolute Auto 5.7 K/mm3 (1.3-6.7); Neutrophils Percent Auto 58.8 % (45.5-73.1); Platelet Count Result 150 k/mm3 (150-375); Red Blood Count 4.42 M/mm3 (4.2-5.4); Red Cell Distribution Width 14.3 % (11.5-14.5); White Blood Count 9.7 K/mm3 (4.5-10.0)
--- NOTE | 2023-04-19 06:28 | PM.OBPNLAB ---
Pain Control Date/time seen: 04/19/23 06:25 Pain control: tolerating well Pelvic Exam Dilation (cm): 3 Effacement (%): 75 station: -3 Amniotic membrane status: Intact Comments: head well applied to cervix Contractions Monitor mode: External Contraction pattern: Irregular Contraction intensity: Mild Status status: Category l Assessment and Plan Pitocin rate (mU/min): 2 Plan: continuous present management Comments: CNM to bedside. Discussed plan of care an option for amniotomy. Discussed risks, benefits, and expectations of breaking water. Patient is agreeable. Amniotomy performed and there was a moderate return of meconium tinged amniotic fluid. Patient tolerated procedure well. Anticipate vaginal .
[2023-04-19 06:30] LABS: Alanine Aminotransferase 18 U/L (6-35); Albumin Level 3.4 g/dL (3.5-5.1); Alkaline Phosphatase 140 U/L (38-126); Anion Gap 9 mmol/L (8-16); Aspartate Amino Transferase 24 U/L (14-36); Bilirubin,Total 0.8 mg/dL (0.2-1.3); Blood Urea Nitrogen 18 mg/dL (7-17); Calcium 8.8 mg/dL (8.4-10.2); Carbon Dioxide 18 mmol/L (22-30); Chloride 109 mmol/L (98-107); Estimated CRCL calculation 112 ml/min; Estimated Glomerular Filt Rate > 60; Glucose 84 mg/dL (65-110); Potassium 3.5 mmol/L (3.4-5.0); Sodium 136 mmol/L (137-145); Uric Acid 7.7 mg/dL (2.5-7.5)
[2023-04-19 09:33] LABS: Glucose Point of Care 87 mg/dl (65-105)
[2023-04-19 09:33] LABS: Glucose Point of Care 69 mg/dl (65-105)
[2023-04-19 10:49] LABS: Rapid Plasma Reagin Non-Reactive (NonReactive)
[2023-04-19] MEDS: OXYTOCIN 30 UNITS/NS 500 ML 30 UNITS/500 ML BAG 125 UNITS IV CONT (12:30)
--- NOTE | 2023-04-19 12:42 | P.PCNOB_ITS ---
OB - Vaginal Delivery Note Procedure Delivery date: 04/19/23 Events: Chronic Hypertension and Gestational Diabetes Induction method: Per Pitocin Protocol Delivery augmentation: Rupture of Membranes Delivery monitor: External FHT and External Uterine Route of delivery: Episiotomy description: None Laceration Description: Perineal - 2nd Degree Delivery repair: vicryl Specimen: Yes Quantitative Blood Loss (ml): 300 Anesthesia type: Epidural Disposition: Floor Complications: No immediate complications Narrative: Kymberly arrived for induction of labor secondary to gestational diabetes. Pitocin was started and membranes were ruptured. She quickly vertex to complete dilation and pushed extremely well with a few contractions. She delivered the head in a very controlled manner followed by the anterior-posterior shoulders. After the remainder of the was delivered, he was placed on the maternal abdomen and dried and stimulated by the nursery staff. After 1 minutes of life, the cord was doubly clamped and cut. Cord blood, cord gases, and cord segment were obtained. A second-degree perineal laceration was repaired in the usual fashion. There was excellent hemostasis and uterine tone. All delivery counts correct. Mother and baby skin to skin in the delivery room. [place] Baby Date of : 04/19/23 Time of : 12:14 Weeks of gestation at delivery: 39 Infant gender: Male Weight (pounds): 0 (unavailable at this time.) presentation: vertex position: Right Occiput Anterior Placenta delivery description: Spontaneous and Normal Configuration Cord Vessel Description: 3 Vessels and Delayed Cord Clamping score one minute: 8 score five minutes: 9
--- NOTE | 2023-04-19 12:47 | PM.OBDSVD ---
DS: Admitting Diagnosis Discharge Date 04/21/2023 Admitting Diagnosis 32 y.o. at 39 weeks gestation GDMA2 CHTN PCOS Vitamin B12 deficiency DS: Discharge Diagnosis Discharge Diagnosis (1) (normal spontaneous vaginal delivery): Code(s): O80 - Encounter for full-term uncomplicated delivery Status: Acute (2) Gestational diabetes: Code(s): O24.419 - Gestational diabetes mellitus in , unspecified control Status: Acute (3) Vaginal laceration: Code(s): S31.41XA - Laceration without foreign body of vagina and vulva, initial encounter Status: Acute (4) Chronic hypertension: Code(s): I10 - Essential (primary) hypertension Status: Acute OB - DS: Summary Hospital Course Hospital Course: Uncomplicated OB Procedures : NST and Ultrasound OB Procedures Intrapartum: Spontaneous Vag Delivery OB Procedures: : None Peripartum Data Infant Delivery Method: Natural Vaginal Laceration Description: Perineal - 2nd Degree Episiotomy description: None complications: none Time Spent with Patient Time attestation: Total time spent providing and/or coordinating discharge services: DS: Data Data Completed and Pending Labs on day of discharge: Labs from last 24 hours 04/19/23 04/19/23 04/19/23 09:31 08:35 05:18 WBC RBC Hgb Hct MCV MCH MCHC RDW Plt Count MPV Immature Gran % (Auto) Neut % (Auto) Lymph % (Auto) [place] % (Auto) Eos % (Auto) Baso % (Auto) Lymph # (Auto) [place] # (Auto) Eos # (Auto) Baso # (Auto) Abs Immat Gran (auto) Absolute Neuts (auto) Absolute Nucleated RBC Nucleated RBC % % Immature Plt Fraction Sodium Potassium Chloride Carbon Dioxide Anion Gap BUN Creatinine Estim Creat Clear Calc Estimated GFR Glucose POC Capillary Glucose 87 69 Uric Acid Calcium Total Bilirubin AST ALT Alkaline Phosphatase Total Protein Albumin Cancelled RPR Non-reactive Blood Type O Positive Antibody Screen Negative 04/19/23 04/19/23 04/19/23 05:18 05:18 05:18 WBC RBC Hgb Hct MCV MCH MCHC RDW Plt Count MPV Immature Gran % (Auto) Neut % (Auto) Lymph % (Auto) [place] % (Auto) Eos % (Auto) Baso % (Auto) Lymph # (Auto) [place] # (Auto) Eos # (Auto) Baso # (Auto) Abs Immat Gran (auto) Absolute Neuts (auto) Absolute Nucleated RBC Nucleated RBC % % Immature Plt Fraction Sodium Potassium Chloride Carbon Dioxide Anion Gap BUN Creatinine Estim Creat Clear Calc Estimated GFR Glucose POC Capillary Glucose Uric Acid Calcium Total Bilirubin AST ALT Cancelled Alkaline Phosphatase Cancelled 140 H Total Protein Cancelled 7.0 Albumin 3.4 L RPR Blood Type Antibody Screen 04/19/23 04/19/23 04/19/23 05:18 05:18 05:18 WBC RBC Hgb Hct MCV MCH MCHC RDW Plt Count MPV Immature Gran % (Auto) Neut % (Auto) Lymph % (Auto) [place] % (Auto) Eos % (Auto) Baso % (Auto) Lymph # (Auto) [place] # (Auto) Eos # (Auto) Baso # (Auto) Abs Immat Gran (auto) Absolute Neuts (auto) Absolute Nucleated RBC Nucleated RBC % % Immature Plt Fraction Sodium Potassium Chloride Carbon Dioxide Anion Gap BUN Creatinine Estim Creat Clear Calc Estimated GFR Glucose POC Capillary Glucose Uric Acid Calcium Cancelled Total Bilirubin Cancelled 0.8 AST Cancelled 24 ALT 18 Alkaline Phosphatase Total Protein Albumin RPR Blood Type Antibody Screen 04/19/23 04/19/23 04/19/23 05:18 05:18 05:18 WBC RBC Hgb Hct MCV MCH MCHC RDW Plt Count MPV Immature Gran % (Auto) Neut % (Au
[2023-04-19 12:55] LABS: Glucose Point of Care 72 mg/dl (65-105)
--- NOTE | 2023-04-19 16:58 | OBPPTRN ---
1542 Patient transferred to post room #281 via W/C. Support person present. Oriented to unit, room, information board, rooming in, admission packet and security measures. Patient verbalizes understanding.
[2023-04-20 01:33] VITALS: BP 128/89; PULSE 77; RESP 18; TEMP 36.6; O2SAT 95
[2023-04-20 06:18] LABS: Glucose Point of Care 71 mg/dl (65-105)
[2023-04-20 06:19] LABS: Hematocrit 35.3 % (37.0-47.0); Hemoglobin 11.5 g/dL (12.0-15.0)
[2023-04-20 07:55] VITALS: BP 136/81; PULSE 72; RESP 16; TEMP 37.1; O2SAT 99
--- NOTE | 2023-04-20 09:32 | P.PNOB_ITS ---
OB - PN: Subj Subjective Date/time seen: 04/20/23 0710 Interval history: Doing well. Urinating without difficulty. Denies passing any large clots. Denies dizziness with ambulating. Tolerating po food and fluids. Bonding with . Patient comments: no complaints and pain well controlled [place] baby status: nursing well (sleepy overnight but latched well after ) [place] feeding status: exclusively breast feeding OB - PN: Obj Data Labs 04/20/23 06:00 04/19/23 05:18 Labs: Laboratory Results - last 24 hr 04/19/23 04/19/23 04/19/23 05:18 08:35 09:31 Hgb Hct POC Capillary Glucose 69 87 RPR Non-reactive 04/19/23 04/20/23 04/20/23 12:06 06:00 06:14 Hgb 11.5 L Hct 35.3 L POC Capillary Glucose 72 71 RPR OB - PN A/P Plan day: 1 Plan: routine care Time Spent With Patient Time: Total time spent is greater than 50% in coordination of care (as documented) at patient's floor/unit and/or counseling patient: Review of Systems Review of Systems: All systems reviewed & are unremarkable except as noted in HPI and below Exam Narrative: Alert and oriented. Mood is pleasant and cooperative. Perineum with minimal edema. Fundus firm and below umbilicus. Const: General: cooperative, healthy appearing, no acute distress and alert Orientation/consciousness: patient oriented x3 Limitations: no limitations Resp: Effort & Inspection: normal respiratory effort and able to speak in complete sentences Auscultation: clear to auscultation bilaterally Cardio: Rate: regular rate GI: Inspection: normal to inspection Auscultation: normal bowel sounds : General: Yes bladder normal to palpation External Female Exam: other (lochia WNL) Bimanual exam- vagina & uterus: bladder normal to palpation Other: Fundus firm and below U Skin: General skin exam: normal color and no rashes or lesions noted Neuro: General: patient oriented x3 and moves all extremities Cognition (Neuro): normal cognition Extrem: General: normal to inspection and no calf tenderness Psych: Appearance: grossly normal Mental Status: mental status grossly normal Affect: normal affect Thought process: Normal thought process present
[2023-04-20] MEDS: metFORMIN HCL XR 500 MG TAB.SR.24H PO (10:16)
[2023-04-20] MEDS: MULTIVIT/MIN/PREN/FOL AC/IRON TABLET 1 TAB PO (10:16)
[2023-04-20 11:00] VITALS: PULSE 78
[2023-04-20] MEDS: LABETALOL HCL 100 MG TABLET 300 MG PO ×2 (11:00→23:22)
[2023-04-20 12:41] VITALS: BP 119/83; PULSE 68; RESP 16; TEMP 37.2; O2SAT 98
[2023-04-20 16:00] VITALS: BP 133/75; PULSE 76; RESP 16; TEMP 36.6; O2SAT 99
--- NOTE | 2023-04-20 16:15 | PC.NURSE ---
[id number] Introductions were made, then consulted with patient to assess needs related to . Discussed with mother her?plans to feed?her infant, the?experience so far and her history. Resources provided for inpatient and outpatient services with the feeding sheet, mom/baby guide and name written on the communication board. Mother voiced understanding of information and will call if there is a request for assistance. Reported to the Primary RN.
[2023-04-20] MEDS: DOCUSATE SODIUM 100 MG CAPSULE PO (16:57)
[2023-04-20] MEDS: POLYSACCHARIDE IRON COMPLEX 150 MG CAPSULE PO (16:57)
[2023-04-20 20:05] VITALS: BP 143/82; PULSE 78; RESP 18; TEMP 36.9
--- NOTE | 2023-04-21 08:06 | PM.OBPNVD ---
OB - PN: Subj Subjective Date/time seen: 04/21/23 08:06 Interval history: Doing well overnight. Urinating without difficulty. Denies passing any large clots. Denies dizziness with ambulating. Tolerating po food and fluids. Bonding with infant. well. Patient comments: no complaints and pain well controlled [place] baby status: nursing well [place] feeding status: exclusively breast feeding OB - PN: Obj Data Labs 04/20/23 06:00 04/19/23 05:18 OB - PN A/P Plan day: 2 Plan: discharge home Time Spent With Patient Time: Total time spent is greater than 50% in coordination of care (as documented) at patient's floor/unit and/or counseling patient: Review of Systems Review of Systems: All systems reviewed & are unremarkable except as noted in HPI and below Exam Narrative: Alert and oriented. Mood is pleasant and cooperative. Perineum with minimal edema. Fundus firm and below umbilicus. Const: General: cooperative, healthy appearing, no acute distress and alert Orientation/consciousness: patient oriented x3 Limitations: no limitations Resp: Effort & Inspection: normal respiratory effort and able to speak in complete sentences Auscultation: clear to auscultation bilaterally Cardio: Rate: regular rate GI: Inspection: normal to inspection Auscultation: normal bowel sounds : General: Yes bladder normal to palpation External Female Exam: other (lochia WNL) Bimanual exam- vagina & uterus: bladder normal to palpation Other: Fundus firm and below U Skin: General skin exam: normal color and no rashes or lesions noted Neuro: General: patient oriented x3 and moves all extremities Cognition (Neuro): normal cognition Extrem: General: normal to inspection and no calf tenderness Psych: Appearance: grossly normal Mental Status: mental status grossly normal Affect: normal affect Thought process: Normal thought process present
[2023-04-21 08:10] VITALS: BP 115/74; PULSE 78; RESP 16; TEMP 37.1; O2SAT 99
[2023-04-21 08:46] VITALS: PULSE 72
[2023-04-21] MEDS: MULTIVIT/MIN/PREN/FOL AC/IRON TABLET 1 TAB PO (08:46)
[2023-04-21] MEDS: LABETALOL HCL 100 MG TABLET 300 MG PO (08:46)
[2023-04-21] MEDS: metFORMIN HCL XR 500 MG TAB.SR.24H PO (08:46)
--- NOTE | 2023-04-21 12:39 | PC.NURSE ---
6943 Mother led the conversation with her experience so far, plan to feed her , and her ability to independently latch optimally without discomfort. Observed mother with per her request. Baby is able to latch on without difficulties to both breasts and feeding progressed well. Reminded mother to use good handwashing technique to prevent infection. Mother is feeding appropriately for growth of infant and understands stimulating to eat if needed. Infant has had appropriate feedings in the last 24 hours meets the outcomes for weight, output, blood sugar and jaundice at this time. Mother states she is confident to continue effectively her at home, when to call for assistance, denies any additional assistance or education at this time. Reinforced understanding of milk production, transition of milk, signs of adequate intake, transition of stool, prevention/relief of engorgement, plugged ducts, mastitis, responsive watching for feeding cues, the different methods of stimulating to breastfeed 1-3 hours after the start of the last feeding, community resources, medication information reviewed per [facility] and when to call a provider using the resource of the mom and baby guide. Mother voiced understanding of the education shared. Reported to the Primary RN.
[2023-04-24 10:39] VITALS: BP 142/83; PULSE 79; RESP 18; TEMP 36.8; O2SAT 99
== END 2023-04-21 12:35 | disposition home or self-care (01) | DRG 807 ==
LOC: ANHLDR 12:51 → ANHOB2 16:29
PROVIDERS: Advanced Practice Midwife; Admitting Provider Obstetrics & Gynecology Gynecology; Visit Provider Obstetrics & Gynecology Gynecology
DX: O10.92 Unspecified pre-existing hypertension complicating childbirth (principal); Z37.0 Single live birth; Z3A.39 39 weeks gestation of pregnancy; O24.429 Gestational diabetes mellitus in childbirth, unspecified control; O70.1 Second degree perineal laceration during delivery; O77.0 Labor and delivery complicated by meconium in amniotic fluid
CPT/HCPCS: 36415; 80053; 82948; 84550; 85014; 85018; 85025; 85055; 86592; 86850; 86900; 86901; 88307; A9270; J2590; J2795; J7120